=== PATIENT | female | born 1985 | race Caucasian/White ===

== ENCOUNTER 2018-01-11 17:38 | Inpatient (IN) | payer OTHER ==
[~2018-01-11] VITALS: Ht 167.6 cm; Wt 79.9 kg
[2018-01-11 17:44] VITALS: Ht 167.6 cm; Wt 79.9 kg
[2018-01-11 20:46] LABS: BASOPHIL % 0.3 % (0-2); PLATELET COUNT 261 x10^3mcL (130-400)
[2018-01-11 21:03] LABS: CALCIUM 9.5 mg/dL (8.5-10.1); CARBON DIOXIDE 24.3 mmol/L (21-32); CHLORIDE SERUM 99 mmol/L (98-107); CREATININE SERUM 0.7 mg/dL (0.6-1.0); GFR1 > 60 mL/min; GLUCOSE SERUM 96 mg/dL (74-106); POTASSIUM SERUM 4.5 mmol/L (3.5-5.1); SODIUM SERUM 134 mmol/L (136-145)
[2018-01-11 21:09] LABS: ALBUMIN 4.1 g/dL (3.4-5.0); ALKALINE PHOSPHATASE 77 U/L (46-116); ALT/SGPT 64 U/L (14-59); AST/SGOT 39 U/L (15-37); BILIRUBIN TOTAL 0.6 mg/dL (0.20-1.00); T4(THYROXINE) 10.2 ug/dL (4.7-13.3); TOTAL PROTEIN, SERUM 8.2 g/dL (6.4-8.2)
[2018-01-11] MEDS ORDERED: LIPI10 PO (21:44)
[2018-01-11] MEDS ORDERED: LISINOPRIL10 MG PO (21:44)
[2018-01-11 22:57] VITALS: BP 149/89
[2018-01-12 05:25] VITALS: BP 92/57
[2018-01-12 06:51] LABS: BASOPHIL % 0.3 % (0-2); PLATELET COUNT 249 x10^3mcL (130-400); RED CELL DISTRIBUTION WIDTH 12.8 % (11.5-14.5)
[2018-01-12 07:03] LABS: CHLORIDE SERUM 102 mmol/L (98-107); CREATININE SERUM 0.9 mg/dL (0.6-1.0); GFR1 > 60 mL/min; GLUCOSE SERUM 107 mg/dL (74-106); POTASSIUM SERUM 3.9 mmol/L (3.5-5.1); SODIUM SERUM 135 mmol/L (136-145)
[2018-01-12 08:25] VITALS: BP 105/61
[2018-01-12 12:30] VITALS: BP 112/75
[2018-01-12 16:55] VITALS: BP 133/88
[2018-01-12 21:17] VITALS: BP 127/89
[2018-01-13 05:52] VITALS: BP 116/71
[2018-01-13 06:36] LABS: BASOPHIL % 0.2 % (0-2); PLATELET COUNT 231 x10^3mcL (130-400); RED CELL DISTRIBUTION WIDTH 13.1 % (11.5-14.5)
[2018-01-13 06:59] LABS: CALCIUM 9.1 mg/dL (8.5-10.1); CARBON DIOXIDE 24.6 mmol/L (21-32); CHLORIDE SERUM 106 mmol/L (98-107); CREATININE SERUM 0.7 mg/dL (0.6-1.0); GFR1 > 60 mL/min; GLUCOSE SERUM 101 mg/dL (74-106); POTASSIUM SERUM 4.1 mmol/L (3.5-5.1); SODIUM SERUM 142 mmol/L (136-145)
[2018-01-13 09:46] VITALS: BP 106/65
[2018-01-13 13:00] VITALS: BP 106/65
[2018-01-13 13:05] VITALS: BP 127/78
[2018-01-13 16:53] VITALS: BP 144/99
[2018-01-13 20:00] VITALS: BP 127/78
== END 2018-01-13 20:40 | disposition home or self-care (01) | DRG 199 ==
LOC: ED 17:38 → DU 22:01
PROVIDERS: Emergency Medicine; Internal Medicine; Internal Medicine Pulmonary Disease
DX: I16.0 Hypertensive urgency (principal); E78.5 Hyperlipidemia, unspecified; I10 Essential (primary) hypertension; M81.0 Age-related osteoporosis without current pathological fracture; R07.89 Other chest pain; E66.9 Obesity, unspecified; Z79.899 Other long term (current) drug therapy
CPT/HCPCS: 83880; J2405; Q0092; Q9967

== ENCOUNTER 2018-01-15 19:36 | Emergency (ER) | payer OTHER ==
[~2018-01-15] VITALS: Ht 167.6 cm; Wt 79.8 kg
[~2018-01-15 19:36] MED LIST: LIPI10 PO; LISINOPRIL10 MG PO
[2018-01-15 19:49] VITALS: Ht 167.6 cm; Wt 79.8 kg
[2018-01-15 21:46] LABS: BASOPHIL % 0.1 % (0-2); PLATELET COUNT 277 x10^3mcL (130-400)
[2018-01-15 21:54] LABS: CALCIUM 9.3 mg/dL (8.5-10.1); CARBON DIOXIDE 27.6 mmol/L (21-32); CHLORIDE SERUM 103 mmol/L (98-107); CREATININE SERUM 0.8 mg/dL (0.6-1.0); GFR1 > 60 mL/min; GLUCOSE SERUM 123 mg/dL (74-106); POTASSIUM SERUM 4.2 mmol/L (3.5-5.1); SODIUM SERUM 141 mmol/L (136-145)
[2018-01-15 21:56] LABS: ALBUMIN 4.2 g/dL (3.4-5.0); BILIRUBIN DIRECT 0.11 mg/dL (0.0-0.2); BILIRUBIN TOTAL 0.4 mg/dL (0.20-1.00); TOTAL PROTEIN, SERUM 8.1 g/dL (6.4-8.2)
[2018-01-16 01:11] VITALS: BP 157/98
== END 2018-01-16 01:11 | disposition home or self-care (01) ==
LOC: ED 19:36
PROVIDERS: Emergency Medicine
DX: R07.89 Other chest pain (principal); I10 Essential (primary) hypertension; E78.00 Pure hypercholesterolemia, unspecified
CPT/HCPCS: 36415

== ENCOUNTER 2018-12-16 21:04 | Emergency (ER) | payer OTHER ==
[~2018-12-16] VITALS: Ht 167.6 cm; Wt 80.3 kg
[2018-12-16 21:08] VITALS: Ht 167.6 cm; Wt 80.3 kg
[2018-12-16 21:52] LABS: BASOPHIL % 0.5 % (0-2); PLATELET COUNT 240 x10^3mcL (130-400); RED CELL DISTRIBUTION WIDTH 12.5 % (11.5-14.5)
[2018-12-16 22:06] LABS: CALCIUM 9.1 mg/dL (8.5-10.1); CARBON DIOXIDE 27.4 mmol/L (21-32); CHLORIDE SERUM 104 mmol/L (98-107); CREATININE SERUM 0.7 mg/dL (0.6-1.0); GFR1 > 60 mL/min; GLUCOSE SERUM 98 mg/dL (74-106); POTASSIUM SERUM 3.8 mmol/L (3.5-5.1); SODIUM SERUM 140 mmol/L (136-145)
[2018-12-16 22:11] LABS: ALBUMIN 3.6 g/dL (3.4-5.0); ALKALINE PHOSPHATASE 85 U/L (46-116); ALT/SGPT 55 U/L (14-59); AST/SGOT 32 U/L (15-37); BILIRUBIN TOTAL 0.2 mg/dL (0.20-1.00); CHOLESTEROL 260 mg/dL (<200); CHOLESTEROL/HDL RATIO 4.9; HDL CHOLESTEROL 53 mg/dL (40-60); TOTAL PROTEIN, SERUM 7.7 g/dL (6.4-8.2); TRIGLYCERIDES 305 mg/dL (<150)
[2018-12-16 22:20] LABS: T3 TOTAL 1.28 ng/mL
[2018-12-16 22:21] LABS: FREE T4 0.81 ng/dL (0.76-1.46); FREE THYROXINE INDEX 2.9 ug/dL (1.4-4.5); T4(THYROXINE) 9.8 ug/dL (4.7-13.3)
[2018-12-16 23:06] VITALS: BP 144/109
== END 2018-12-16 23:06 | disposition home or self-care (01) ==
LOC: ED 21:04
PROVIDERS: Emergency Medicine
DX: I10 Essential (primary) hypertension (principal); E78.00 Pure hypercholesterolemia, unspecified
CPT/HCPCS: 36415; 84439

== ENCOUNTER 2020-01-07 01:37 | Emergency (ER) | payer SELFPAY ==
[~2020-01-07] VITALS: Ht 167.6 cm; Wt 80.3 kg
[2020-01-07 01:45] VITALS: Ht 167.6 cm; Wt 80.3 kg
[2020-01-07 03:51] LABS: CALCIUM 8.8 mg/dL (8.5-10.1); CARBON DIOXIDE 28.2 mmol/L (21-32); CHLORIDE SERUM 104 mmol/L (98-107); CREATININE SERUM 0.7 mg/dL (0.6-1.0); GFR1 > 60 mL/min; GLUCOSE SERUM 97 mg/dL (74-106); POTASSIUM SERUM 3.7 mmol/L (3.5-5.1); SODIUM SERUM 141 mmol/L (136-145)
[2020-01-07 03:56] LABS: ALBUMIN 3.8 g/dL (3.4-5.0); ALKALINE PHOSPHATASE 77 U/L (46-116); ALT/SGPT 45 U/L (14-59); AST/SGOT 34 U/L (15-37); BILIRUBIN TOTAL 0.51 mg/dL (0.20-1.00); TOTAL PROTEIN, SERUM 7.1 g/dL (6.4-8.2)
[2020-01-07 04:33] LABS: BASOPHIL % 0.1 % (0-2); PLATELET COUNT 236 x10^3mcL (130-400); RED CELL DISTRIBUTION WIDTH 12.9 % (11.5-14.5)
[2020-01-07 05:44] VITALS: BP 150/99
== END 2020-01-07 05:44 | disposition home or self-care (01) ==
LOC: ED 01:37
PROVIDERS: Emergency Medicine
DX: I10 Essential (primary) hypertension (principal); Z76.0 Encounter for issue of repeat prescription; E78.00 Pure hypercholesterolemia, unspecified
CPT/HCPCS: 36415; Q0092

== ENCOUNTER 2020-11-20 03:01 | Emergency (ER) | payer OTHER ==
[~2020-11-20] VITALS: Ht 167.6 cm; Wt 84.8 kg
[2020-11-20 03:09] VITALS: Ht 167.6 cm; Wt 84.8 kg
[2020-11-20 04:40] VITALS: BP 135/94
== END 2020-11-20 04:40 | disposition home or self-care (01) ==
LOC: ED 03:01
DX: T78.40XA Allergy, unspecified, initial encounter (principal); I10 Essential (primary) hypertension; E78.00 Pure hypercholesterolemia, unspecified; X58.XXXA Exposure to other specified factors, initial encounter
CPT/HCPCS: J1200; J2920; J2930